=== PATIENT | male | born 1965 | race Caucasian/White ===

== ENCOUNTER → 2018-01-02 | Outpatient (CLI) | payer BC | END | disposition home or self-care (01) | DX: M16.11 Unilateral primary osteoarthritis, right hip (principal); R26.2 Difficulty in walking, not elsewhere classified; M25.551 Pain in right hip; M25.651 Stiffness of right hip, not elsewhere classified; Z74.1 Need for assistance with personal care | CPT/HCPCS: 97161 GP; 97165 GO; 97530 GP; 97535 GO ==

== ENCOUNTER 2018-01-21 22:05 | Inpatient (IN) | payer BC ==
[~2018-01-21] VITALS: Ht 185.4 cm; Wt 106.1 kg
[~2018-01-21 22:05] MED LIST: LISINOPRIL-HCT1 EAC3 PO; OSTEO BI-FLEX1 EAC1 PO; TOPROL XL25 MG PO; VIAGRA100 MG PO
[2018-01-22 05:56] VITALS: BP 174/99
[2018-01-22 12:22] VITALS: BP 139/84
[2018-01-22 14:17] VITALS: BP 116/79
[2018-01-22 16:24] VITALS: BP 125/74
[2018-01-22 19:30] VITALS: BP 120/82
[2018-01-23 00:10] VITALS: BP 129/67
[2018-01-23 04:02] VITALS: BP 117/72
[2018-01-23 07:56] LABS: HEMATOCRIT 40.7 % (38.0-50.0); HEMOGLOBIN 13.6 G/DL (12.5-16.6); MCV 95.5 FL (86-99)
[2018-01-23 08:14] VITALS: BP 119/96
[2018-01-23 09:15] LABS: CHLORIDE 96 MEQ/L (99-109); GFR ESTIMATE (CALCULATED) > 59 mL/min/ (58.99-99999); GLUCOSE 104 mg/dL (70-99); POTASSIUM 3.8 MEQ/L (3.7-5.4); SODIUM 135 MEQ/L (136-147); UREA NITROGEN (BUN) 11 mg/dL (9-23)
[2018-01-23] MEDS ORDERED: ENDOCET 5-3251 EACH PO (09:29)
[2018-01-23] MEDS ORDERED: ELIQUIS2.5 MG PO (09:29)
[2018-01-23 11:35] VITALS: BP 106/55
== END 2018-01-23 14:12 | disposition home health service (06) | DRG 470 ==
LOC: ENRESERV 22:05 → 2SOUTH 01-22 05:27 → SDC 01-22 10:04 → EDSTATUS 01-22 10:04 → 2SOUTH 01-22 10:05 → 3WEST 01-22 11:55 → 2SOUTH 01-22 12:57 → 3WEST 01-23 14:12
PROVIDERS: Orthopaedic Surgery; Physician Assistant
PROC: 0SR902A Replacement of Right Hip Joint with Metal on Polyethylene Synthetic Substitute, Uncemented, Open Approach (ICD-10-PCS; principal; 2018-01-22)
DX: M16.11 Unilateral primary osteoarthritis, right hip (principal); I10 Essential (primary) hypertension; M87.9 Osteonecrosis, unspecified; E66.3 Overweight; Z68.30 Body mass index [BMI] 30.0-30.9, adult
CPT/HCPCS: 80048; 85014; 85018; J0131; J0690; J1170; J2250; J2405; J7050; J7120; S0020